=== PATIENT | female | born 1965 | race Caucasian/White ===

== ENCOUNTER 2024-08-10 15:08 | Emergency (ER) | payer OTHER ==
--- OUTSIDE RECORDS SUMMARY | 2024-08-10 15:12 | XMS REPORT | Continuity of Care Document ---
Author Name Unknown Address [address] [facility] [address] [place] [address] [facility] Address [address] [facility] [place] [address] Care Team Providers Care Marker Assembler Name Role Phone PCP, NOT FOUND Primary Care Physician Unavailab CY Morse Attending Clinician Unavailable [id number] Attending Clinician Unavailable NELLIE LORENZO Attending Clinician Unavailable Renetta Smith MD Attending Clinician RNEETTA SMITH Attending Clinician Unavail able FÉLIX FINLEY Attending Clinician Unavailable GABBIE HALL Attending Clinician Unavailable KELLY GRAVES Attending Clinician Unava ilable LAB90 Attending Clinician Unavailable MARIA LUZ FISHER Attending Clinician Unava ilable Doctor Unassigned, Manuel Garcia Ii Attending Clinician U ARY Hong Attending Clinician Unavailable Ary Salcido PA-C Attending Clinician [phone] Unknown, Attending Attending Clinician Unavailab JENNIFER Lieberman Attending Clinician Unavailable Jennifer Alvarado Attending Clinician [phone] LOUIE MALDONADO Attending Clinician Unavailable Gege RIVASP, Louie Zendejas Attending Clinician [phone] Janak PATEL, Carmelo Attending Clinician [phone] Tristan Velez PT, Shania Attending Clinician Un available Ozzy Cintron MD Attending Clinician [phone] Neri GONZALEZ, Anibal Gutierrez Attending Clinician Unavailmarisel Rush PT, Kelly Attending Clinician Unavailab OZZY Dumont Attending Clinician Unavaildeon Barrios PACShahriar S Attending Clinician [phone] Onel Lim MD Attending Clinician [phone] Provider, [facility] Attending Clinician Un available CARMELO BRICENO Attending Clinician Unavailable Rudy MISSILE INSPECTOR PREFLIGHT, Magda Attending Clinician [phone] Erik Marquez MD Attending Clinician + [phone] , [facility] Attending Clinician Unavail able LOUIE MALDONADO Admitting Clinician Unavailable Payers Payer Name Policy Type Policy Number Effective Date Expirati on Date Source [employer]ET[employer] HMO [id number] 2018 00:00:00 [employer] 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 [id number] 2024 00:00:00 [employer]ET[employer] 2 [id number] 2023 00:00:00 [employer] ACO COMM [id number] 2017 00:00:00 EAP RESOURCES FOR LVG_AETNA [id number] 2023 00:00:00 2024 00:00:00 Problems Condition Name Condition Details Condition Category Status Onset Date Resolution Date Last Treatment Date Treating Clinician Comments Source Primary hypertensi on Primary hypertensi on Disease Active 07-05 00:00: 00 Mary Carmen morton Depression with anxiety Depression with anxiety Disease Active 07-05 00:00: 00 Mary Carmen morton Fibromyalg ia Fibromyalg ia Disease Active 18 00:00: 00 Mary Carmen morton Allergies Allergies Disease Active 6- 00:00: 00 Ame Barker Anxiety Anxiety Disease Active 03-30 00:00: 00 Ame Barker 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 03-30 00:00: 00 Ame Barker Depression Depression Disease Active 03-30 00:00: 00 Ame Barker Headache Headache Disease Active 03-30 00:00: 00 Ame Barker HTN (hypertens ion) HTN (hypertens ion) Disease Active 03-30 00:00: 00 Ame Barker Memory loss Memory loss Disease Active 03-30 00:00: 00 Ame Barker Lumbar radiculopa thy Lumbar radiculopa thy Disease Active 03-30 00:00: 00 Ame Barker Obesity Obesity Disease Active 03-30 00:00: 00 Ame Barker Seasonal allergic rhinitis Seasonal allergic rhinitis Disease Active 03-30 00:00: 00 Ame Barker Obesity (BMI 30-39.9) Obesity (BMI 30-39.9) Disease Active 05-01 00:00: 00 [facility] DISORDERS OF SACRUM DISORDERS OF SACRUM Active 06/25/2015 [facility] Diagnosis Active 06-25 00:00: 00 2015-07-03 06:55:00 Ame Pappas Sleep apnea Sleep apnea Disease Active 01-16 00:00: 00 Ame Barker NSAID long-term use NSAID long-term use Disease Active 04-06 00:00: 00 Ame Barker Spondylosi s Spondylosi s Disease Active 03-16 00:00: 00 Ame Barker Acid reflux Acid reflux Disease Active 2009-10 0 00:00: 00 Ame Barker Inflammato ry spondylopa thy Inflammato ry spondylopa thy Disease Active 04-23 00:00: 00 Ame Barker Inflammato ry spondylopa thy Inflammato ry spondylopa thy Disease Active 04-23 00:00: 00 [facility] Backache Backache Disease Active 03-10 00:00: 00 Overview: Formattin g of this note might be different from the original. 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 [facility] Cervicalgi a Cervicalgi a Disease Active 03-10 00:00: 00 [facility] Other and unspecifie d nonspecifi c immunologi tosin findings Other and unspecifie d nonspecifi c immunologi tosin findings Disease Active 03-10 00:00: 00 [facility] DISORDERS OF SACRUM DISORDERS OF SACRUM Active [facility] Diagnosis Active 2015-07-03 06:55:00 Ame Pappas Arthritis (disorder) Arthritis (disorder) Active Problem 07/06/2015 [facility] Problem Active 2015-07-06 00:58:21 Ame Pappas Migraine Migraine Disease Resolve d 03-30 00:00: 00 2024-03-30 00:00:00 2024-03-30 15:13:50 Ame Pappas Epic Asthma Asthma Disease Resolve d 03-30 00:00: 00 2024-03-30 00:00:00 2024-03-30 15:13:50 Ame Pappas Epic Allergies, Adverse Reactions, Alerts Allergy Name Allergy Type Status Severity Reaction(s) Onset Date Inactive Date Treating Clinician Comments Source Aspirin Propensi ty to adverse reaction s Active 10-28 00:00: 00 Mary Carmen Seybold - Externa l Penicill ins Drug Intolera nce Active Itching 03-10 00:00: 00 Mary Carmen Seybold - Externa l Penicill ins Propensi ty to adverse reaction s Active Anaphylaxis 03-10 00:00: 00 Mary Carmen Seybold - Externa l Aspirin Propensi ty to adverse reaction s Active Itching, Swelling, Hives 03-10 00:00: 00 Ame Pappas Epic ASPIRIN DRUG INGREDI Active High Itching 03-10 00:00: 00 [facility] PENICILL INS Drug Class Active High Anaphylaxis 03-10 00:00: 00 [facility] ASPIRIN DRUG INGREDI Active Med ITCHING 03-10 00:00: 00 [facility] PENICILL INS Drug Class Active Anaphylaxis 03-10 00:00: 00 [facility] Penicill ins Propensi ty to adverse reaction s Active Anaphylaxis 03-10 00:00: 00 [facility] Aspirin Propensi ty to adverse reaction s Active Itching 03-10 00:00: 00 [facility] Penicill ins Propensi ty to adverse reaction s Active Anaphylaxis 03-10 00:00: 00 [facility] aspirin aspirin Active [facility] [place] penicill ins penicill ins Active [facility] ALLERGIE S NOT ON FILE SYSTEMIC Active [facility] ALLERGIE S NOT ON FILE SYSTEMIC Active [facility] Social History Social Habit Start Date Stop Date Quantity Comments Source Sexual orientation 2024-03-16 17:22:08 Heterosexual (finding) [employer] Gender identity 2024-01-08 19:30:15 Identifies as female gender (finding) [facility] ASSERTION Not Mary Carmen Mad[place] - External Tobacco use and exposure 2024-03-30 00:00:00 2024-03-30 00:00:00 Smokeless tobacco non-user [facility] Alcoholic beverage intake 2024-03-30 00:00:00 2024-03-30 00:00:00 .14 /d [facility] Social function 2024-03-30 00:00:00 2024-03-30 00:00:00 [facility] Alcohol intake 2023-05-28 00:00:00 2023-05-28 00:00:00 [facility] Sex 2023-05-17 13:44:26 2023-05-17 13:44:26 Female (finding) Mary Carmen Madera - External Exposure to SARS-CoV-2 (event) 2023-01-29 00:00:00 2023-02-08 21:07:00 Not sure [facility] Social History 2015-06-27 15:09:45 2015-06-27 15:09:45 [facility] Sex assigned at 1965 00:00:00 1965 00:00:00 Mary Carmen [place] - External Smoking Status Start Date Stop Date Source Never smoked tobacco Mary Carmen La External Medications Ordered Medication Name Filled Medication Name Start Date Stop Date Current Medication? Ordering Clinician Indication Dosage Frequency Signature (SIG) Comments Components Source busPIRone HCl 7.5 MG oral Tablet 2023-10 10:23: 40 Yes 7.5mg Q.5D Take 1 tablet (7.5 mg total) by mouth 2 times daily. Mary Carmen morton Pantoprazol e Sodium 40 MG oral Tablet Delayed Response 2023-10 10:23: 40 Yes 40mg QD Take 1 tablet (40 mg total) by mouth daily. Mary Carmen morton Valacyclovi r HCl 500 MG oral Tablet 2023-10 10:23: 40 Yes 500mg Q.5D Take 1 tablet (500 mg total) by mouth 2 times daily as needed. Mary Carmen morton busPIRone HCl 7.5 MG oral Tablet 07-05 13:25: 17 Yes 7.5mg Q.5D Take 1 tablet (7.5 mg total) by mouth 2 times daily. Mary Carmen morton Pantoprazol e Sodium 40 MG oral Tablet Delayed Response 07-05 13:25: 17 Yes 40mg QD Take 1 tablet (40 mg total) by mouth daily. Mary Carmen morton Valacyclovi r HCl 500 MG oral Tablet 07-05 13:25: 17 Yes 500mg Q.5D Take 1 tablet (500 mg total) by mouth 2 times daily as needed. Mary Carmen morton FLUTICASONE PROPIONATE, NASAL, 50 MCG/ACT nasal Suspension 07-05 12:44: 46 07-05 00:00 :00 No by nasal route Mary Carmen morton Sumatriptan Succinate 25 MG oral Tablet 07-05 12:44: 46 07-05 00:00 :00 No 50mg Take 2 tablets (50 mg total) by mouth once as needed for migraine (May repeat in 2 hours if unresolved . Do not exceed 200 mg in 24 hours.). Mary Carmen morton Losartan Potassium (COZAAR) 50 MG oral Tablet 07-05 00:00: 00 Yes [id number] 50mg QD Take 1 tablet (50 mg total) by mouth daily. Mary Carmen morton Pregabalin 50 MG oral Capsule 07-05 00:00: 00 Yes [id number] 50mg Q.5D Take 1 capsule (50 mg total) by mouth 2 times daily. Mary Carmen morton Losartan Potassium (COZAAR) 50 MG oral Tablet 06-28 00:00: 00 07-05 00:00 :00 No [id number] 50mg QD TAKE 1 TABLET BY MOUTH EVERY DAY Mary Carmen morton Cyclobenzap rine HCl 10 MG oral Tablet 06-22 00:00: 00 Yes [id number] 10mg Q.5D Take 1 tablet (10 mg total) by mouth 2 times daily as needed. Mary Carmen morton Naproxen 500 MG oral Tablet 06-22 00:00: 00 Yes [id number] 500mg Take 1 tablet (500 mg total) by mouth in the morning and 1 tablet (500 mg total) in the evening. Take with meals. Mary Carmen morton Bupropion HCL XL 150 MG OR TB24 06-21 00:00: 00 Yes [id number] Mary Carmen morton Pregabalin 75 MG oral Capsule 04-25 00:00: 00 Yes 75mg Q.5D Take 1 capsule (75 mg total) by mouth 2 times daily. Mary Carmen morton desloratadi ne (Clarinex) 5 MG tablet desloratadi ne (Clarinex) 5 MG tablet 03-30 15:35: 41 Yes 5mg QD Take 5 mg by mouth 1 time each day. Ame Barker montelukast (Singulair) 10 MG tablet montelukast (Singulair) 10 MG tablet 03-30 15:35: 41 Yes 10mg Take 10 mg by mouth at bedtime. Ame Barker busPIRone (Buspar) 7.5 MG tablet busPIRone (Buspar) 7.5 MG tablet 03-30 15:35: 41 Yes 7.5mg Q.5D Take 7.5 mg by mouth in the morning and 7.5 mg in the evening. Ame Barker pregabalin (Lyrica) 75 MG capsule pregabalin (Lyrica) 75 MG capsule 5-06 00:00: 00 Yes 1{capsu le} Q.5D Take 1 capsule by mouth in the morning and 1 capsule in the evening. Ame Barker pantoprazol e (ProtoNix) 40 MG EC tablet pantoprazol e (ProtoNix) 40 MG EC tablet 4 00:00: 00 Yes 40mg Take 40 mg by mouth in the morning. Take before meals. Ame Barker naproxen (Naprosyn) 500 MG tablet naproxen (Naprosyn) 500 MG tablet 02-09 00:00: 00 Yes 500mg Take 500 mg by mouth if needed. Ame Barker cyclobenzap rine (Flexeril) 10 MG tablet cyclobenzap rine (Flexeril) 10 MG tablet 03 00:00: 00 Yes 10mg Take 10 mg by mouth if needed. Ame Barker Levonorgest -Eth Estrad 0.15-0.03 &0.01 MG oral Tablet 10-28 14:21: 10-28 00:00 :00 No 1{tbl} Take 1 tablet by mouth daily. Mary Carmen morton Semaglutide -ALEX-Chris ght Management 0.25 MG/0.5ML Subcutaneou s Solution Auto-inject or 10-28 00:00: 00 07-05 00:00 :00 No [id number] .25mg Q1W Inject 0.25 mg into the skin once a week. Mary Carmen morton Sertraline HCl 50 MG oral Tablet 2022-10 00:00: 00 10-28 00:00 :00 No [id number] 50mg Take 1 tablet (50 mg total) by mouth daily. Mary Carmen morton OFLOXACIN, OPHTH, 0.3 % ophthalmic Solution 2022-10 00:00: 00 07-05 00:00 :00 No See Admin Instructio ns PLEASE SEE ATTACHED FOR DETAILED DIRECTIONS . Mary Carmen morton Montelukast (Singulair) 10 MG oral Tablet tablet 2022-10 16:40: 50 08-11 00:00 :00 No 10mg Take 1 tablet (10 mg total) by mouth nightly. Mary Carmen morton Pantoprazol e Sodium 40 MG oral Tablet Delayed Response 2022-10 16:25: 04 Yes 40mg Take 1 tablet (40 mg total) by mouth daily. Mary Carmen morton FLUTICASONE PROPIONATE, NASAL, 50 MCG/ACT nasal Suspension 2022-10 16:25: 04 Yes by nasal route Mary Carmen morton Valacyclovi r HCl 500 MG oral Tablet 2022-10 16:25: 04 Yes 500mg Q.5D Take 1 tablet (500 mg total) by mouth 2 times daily as needed. Mary Carmen morton Sumatriptan Succinate 25 MG oral Tablet 2022-10 16:25: 04 Yes 50mg Take 2 tablets (50 mg total) by mouth once as needed for migraine (May repeat in 2 hours if unresolved . Do not exceed 200 mg in 24 hours.). Mary Carmen morton busPIRone HCl 7.5 MG oral Tablet 2022-10 16:25: 04 Yes 7.5mg Take 1 tablet (7.5 mg total) by mouth 2 times daily. Mary Carmen morton Montelukast (Singulair) 10 MG oral Tablet tablet 2022-10 00:00: 00 Yes [id number] 10mg QD Take 1 tablet (10 mg total) by mouth nightly. Mary Carmen morton Sertraline HCl 50 MG oral Tablet 2022-10 00:00: 00 Yes [id number] 50mg Take 1 tablet (50 mg total) by mouth daily. Mary Carmen morton Sertraline HCl 25 MG oral Tablet 2022-10 0- 00:00: 00 08-11 00:00 :00 No [id number] 25mg TAKE 1 TABLET BY MOUTH EVERY DAY AT NIGHT Mary Carmen morton busPIRone HCl 7.5 MG oral Tablet 9-14 16:17: 26 Yes 7.5mg Take 1 tablet (7.5 mg total) by mouth 2 times daily. Mary Carmen morton Pantoprazol e Sodium 40 MG oral Tablet Delayed Response 07-01 16:17: 26 Yes 40mg Take 1 tablet (40 mg total) by mouth daily. Mary Carmen morton FLUTICASONE PROPIONATE, NASAL, 50 MCG/ACT nasal Suspension 07-01 16:17: 26 Yes by nasal route Mary Carmen morton Valacyclovi r HCl 500 MG oral Tablet 07-01 16:17: 26 Yes 500mg Q.5D Take 1 tablet (500 mg total) by mouth 2 times daily as needed. Mary Carmen morton Sumatriptan Succinate 25 MG oral Tablet 07-01 16:17: 26 Yes 50mg Take 2 tablets (50 mg total) by mouth once as needed for migraine (May repeat in 2 hours if unresolved . Do not exceed 200 mg in 24 hours.). Mary Carmen morton Sertraline HCl (Zoloft) 25 MG oral Tablet 07-01 00:00: 00 Yes [id number] 25mg Take 1 tablet (25 mg total) by mouth nightly. Mary Carmen morton Escitalopra m Oxalate 10 MG oral Tablet 06-25 00:00: 00 07-01 00:00 :00 No [id number] 10mg Take 1 tablet (10 mg total) by mouth daily. Mary Carmen morton Montelukast (SINGULAIR) 10 MG oral Tablet tablet 06-19 00:00: 00 07-01 00:00 :00 No Mary Carmen morton busPIRone HCl 7.5 MG oral Tablet 06-01 16:00: 46 Yes 7.5mg Take 1 tablet (7.5 mg total) by mouth 2 times daily Mary Carmen morton Pantoprazol e Sodium 40 MG oral Tablet Delayed Response 06-01 16:00: 46 Yes 40mg Take 1 tablet (40 mg total) by mouth daily Mary Carmen morton FLUTICASONE PROPIONATE, NASAL, 50 MCG/ACT nasal Suspension 06-01 16:00: 46 Yes by nasal route Mary Carmen morton Valacyclovi r HCl 500 MG oral Tablet 06-01 16:00: 46 Yes 500mg Q.5D Take 1 tablet (500 mg total) by mouth 2 times daily as needed Mary Carmen morton Sumatriptan Succinate 25 MG oral Tablet 06-01 16:00: 46 Yes 50mg Take 2 tablets (50 mg total) by mouth once as needed for migraine (May repeat in 2 hours if unresolved . Do not exceed 200 mg in 24 hours.) Mary Carmen morton Escitalopra m Oxalate 10 MG oral Tablet 06-01 00:00: 00 Yes [id number] 10mg Take 1 tablet (10 mg total) by mouth daily Mary Carmen morton Bupropion HCL XL 300 MG OR TB24 05-31 00:00: 00 Yes 300mg 1 tablet (300 mg total) every morning. Mary Carmen morton Desloratadi ne 5 MG oral Tablet 05-31 00:00: 00 Yes 5mg QD Take 1 tablet (5 mg total) by mouth daily. Mary Carmen morton dexamethaso ne sod phos PF injection 10 mg 05-28 18:30: 00 05-28 17:45 :00 No [id number] 10mg [facility] ibuprofen (IBU) tablet 800 mg 05-28 18:30: 00 05-28 17:46 :00 No [id number] 800mg [facility] Hyoscyamine Sulfate 0.125 mg-0.25 mg (0.375 mg) TbMP 05-28 12:51: 08 05-28 00:00 :00 No Take by mouth. [facility] Ibuprofen (MOTRIN) 800 MG oral Tablet 05-28 00:00: 00 10-28 00:00 :00 No 800mg Take 1 tablet (800 mg total) by mouth 3 times daily (with meals). Mary Carmen morton MULTI-VITAM IN ORAL 05-08 13:53: 43 Yes daily [facility] FLUTICASONE PROPIONATE (FLONASE ALLERGY RELIEF NASAL) 05-08 13:53: 43 Yes Use in each nostril. [facility] gabapentin ER 300 mg tablet, extended release 24 hr 05-08 13:53: 43 Yes Take by mouth daily. [facility] desloratadi ne 2.5 mg disintegrat ing tablet 05-08 13:53: 43 Yes 5mg Take 2 tablets by mouth in the morning. [facility] pantoprazol e 40 mg EC tablet 05-08 13:53: 43 Yes 40mg Take 1 tablet by mouth in the morning. [facility] Hyoscyamine Sulfate 0.125 mg-0.25 mg (0.375 mg) TbMP 05-08 13:53: 43 Yes Take by mouth. [facility] busPIRone 7.5 mg tablet 05-08 13:53: 43 Yes 7.5mg Take 1 tablet by mouth in the morning and 1 tablet in the evening. [facility] Losartan Potassium (COZAAR) 50 MG oral Tablet 04-29 00:00: 00 Yes 50mg Take 1 tablet (50 mg total) by mouth daily. Mary Carmen morton Gabapentin 300 MG oral Capsule 03-21 00:00: 00 07-05 00:00 :00 No 300mg QD Take 1 capsule (300 mg total) by mouth daily as needed. Mary Carmen morton ciprofloxac in HCl (CIPRO) tablet 500 mg 02-09 05:45: 00 02-09 04:57 :00 No 500mg 500 mg, Oral, ONCE, 1 dose, On Wed02/09/23 at 0045, [facility]
Re ason for Anti-Infec tive: Empiric Therapy for Suspected Infection< br>Empiric Therapy Site: Abdominal< br>Duratio n of therapy: 72 hours [facility] metroNIDAZO LE (FLAGYL) tablet 500 mg 02-09 05:00: 00 02-09 04:57 :00 No 500mg 500 mg, Oral, ONCE, 1 dose, On Wed02/09/23 at 0000, [facility]
Re ason for Anti-Infec tive: Empiric Therapy for Suspected Infection< br>Empiric Therapy Site: Skin / Soft tissue
Duration of therapy: 72 hours [facility] iopamidol (ISOVUE 370-500 mL) injection 87 mL 02-09 03:45: 00 02-09 03:45 :00 No [id number] 87mL 87 mL, Intravenou s, ONCE, 1 dose, On Wed02/08/23 at 2245, Routine [facility] morpHINE (4 mg/mL) injection 4 mg 02-09 03:15: 00 02-09 02:37 :00 No 4mg 4 mg, Slow IV Push, ONCE, 1 dose, On Wed02/08/23 at 2215, Routine [facility] NaCl 0.9% (NS) bolus infusion 1,000 mL 02-09 03:00: 00 02-09 04:43 :00 No 1000mL at 999 mL/hr, 1,000 mL, IV Infusion, ONCE, 1 dose, On Wed02/08/23 at 2200, FATMATA [facility] ondansetron (ZOFRAN (PF)) injection 4 mg 02-09 02:30: 00 02-09 02:36 :00 No 4mg 4 mg, Slow IV Push, ONCE, 1 dose, On Wed02/08/23 at 2130, [facility] desloratadi ne 2.5 mg disintegrat ing tablet 02-09 00:15: 30 Yes 5mg Take 2 tablets by mouth in the morning. [facility] pantoprazol e 40 mg EC tablet 02-09 00:15: 30 Yes 40mg Take 1 tablet by mouth in the morning. [facility] Hyoscyamine Sulfate 0.125 mg-0.25 mg (0.375 mg) TbMP 02-09 00:15: 30 Yes Take by mouth. [facility] busPIRone 7.5 mg tablet 02-09 00:15: 30 Yes 7.5mg Take 1 tablet by mouth in the morning and 1 tablet in the evening. [facility] ondansetron 4 mg disintegrat ing tablet 02-09 00:00: 00 Yes [id number] 4mg Take 1 tablet by mouth every 12 (twelve) hours as needed for Nausea and Vomiting (N/V). [facility] metroNIDAZO LE 500 mg tablet 02-09 00:00: 00 02-17 04:59 :00 No [id number] 500mg Take 1 tablet by mouth every 8 (eight) hours for 7 days. [facility] ciprofloxac in HCl 500 mg tablet 02-09 00:00: 00 02-17 04:59 :00 No [id number] 500mg Take 1 tablet by mouth in the morning and 1 tablet in the evening. Do all this for 7 days. [facility] acetaminoph en-codeine (TYLENOL-CO DEINE #3) 300-30 mg tablet 02-09 00:00: 00 02-17 04:59 :00 No [id number] 1{tbl} Take 1 tablet by mouth every 6 (six) hours as needed for Pain (scale 7-10) for up to 7 days. Indication s: acute pain [facility] ZYRTEC 10 MG ORAL CAP 02-08 21:17: 09 02-08 00:00 :00 No once daily [facility] MULTI-VITAM IN ORAL 02-08 21:16: 58 Yes daily [facility] FLUTICASONE PROPIONATE (FLONASE ALLERGY RELIEF NASAL) 02-08 21:16: 58 Yes Use in each nostril. [facility] gabapentin ER 300 mg tablet, extended release 24 hr 02-08 21:16: 58 Yes Take by mouth daily. [facility] diclofenac 75 mg EC tablet -02 00:00: 00 02-08 00:00 :00 No 75mg Take 1 tablet by mouth 2 (two) times daily with meals. [facility] HYDROcodone -acetaminop hen (NORCO) 10-325 mg tablet 1 tablet 03-09 07:15: 00 03-09 06:31 :00 No 1{tbl} 1 tablet, Oral, ONCE, 1 dose, 03/09/21 at 0215, [facility] alum-mag hydroxide-s imeth (MAALOX PLUS / MAG-AL PLUS) 200-200-20 mg/5 mL suspension 15 mL 03-09 06:30: 00 03-09 05:32 :00 No 15mL 15 mL, Oral, ONCE, 1 dose, 03/09/21 at 0130, [facility] ondansetron (ZOFRAN-ODT ) disintegrat ing tablet 4 mg 03-09 06:30: 00 03-09 05:31 :00 No 4mg 4 mg, Oral, ONCE, 1 dose, 03/09/21 at 0130, Routine [facility] predniSONE (DELTASONE) tablet 60 mg 03-09 06:30: 00 03-09 05:32 :00 No 60mg 60 mg, Oral, ONCE, 1 dose, 03/09/21 at 0130, [facility] HYDROcodone -acetaminop hen (NORCO) 10-325 mg tablet 03-09 00:00: 00 03-17 04:59 :00 No [id number] 1{tbl} Take 1 tablet by mouth every 6 (six) hours as needed for Pain (scale 4-6) for up to 7 days. Indication s: acute pain [facility] predniSONE 20 mg tablet 03-09 00:00: 00 03-15 04:59 :00 No [id number] 60mg Take 3 tablets by mouth every morning for 5 days. [facility] naproxen 500 mg tablet 2021-0 5-18 00:00: 00 04-04 04:59 :00 No [id number] 500mg Take 1 tablet by mouth 2 (two) times daily as needed for Pain (scale 4-6) for up to 30 days. [facility] ketorolac (TORADOL) injection 30 mg 03-02 23:00: 00 03-02 19:52 :54 No [id number] 30[facility]OL[facility] injection 30 mg 03-02 21:00: 00 03-02 19:54 :00 No [id number] 30mg [facility] gabapentin ER 300 mg tablet, extended release 24 hr 03-02 19:34: 30 Yes Take by mouth daily. [facility] ZYRTEC 10 MG ORAL CAP 03-02 19:32: 18 Yes once daily [facility] MULTI-VITAM IN ORAL 03-02 19:32: 18 Yes daily [facility] FLUTICASONE PROPIONATE (FLONASE ALLERGY RELIEF NASAL) 03-02 19:32: 18 Yes Use in each nostril. [facility] gabapentin ER 300 mg tablet, extended release 24 hr 03-02 14:34: 30 Yes Take by mouth daily. [facility] ZYRTEC 10 MG ORAL CAP 03-02 14:32: 18 Yes once daily [facility] MULTI-VITAM IN ORAL 03-02 14:32: 18 Yes daily [facility] FLUTICASONE PROPIONATE (FLONASE ALLERGY RELIEF NASAL) 03-02 14:32: 18 Yes Use in each nostril. [facility] methylPREDN ISolone (MEDROL, PETRA,) 4 mg tablets 03-02 00:00: 00 02-08 00:00 :00 No [id number] Take by mouth SEE-INSTRU CTIONS. follow package directions [facility] montelukast 10 mg tablet 12 00:00: 00 Yes TAKE 1 TABLET BY MOUTH EVERY DAY AT BEDTIME FOR ALLERGIES [facility] losartan (Cozaar) 50 MG tablet losartan (Cozaar) 50 MG tablet 01-25 00:00: 00 Yes 50mg QD Take 50 mg by mouth 1 time each day. Ame Barker rizatriptan 10 mg disintegrat ing tablet 20 00:00: 00 02-08 00:00 :00 No [facility] meclizine 25 mg tablet 11-28 00:00: 00 02-08 00:00 :00 No 1 TABLET THREE TIMES A DAY NEEDED FOR DIZZINESS ORALLY 10 DAYS [facility] buPROPion XL 150 mg 24 hr tablet 11-26 00:00: 00 Yes 150mg Take 150 mg by mouth daily. [facility] buPROPion XL 150 mg 24 hr tablet 11-26 00:00: 00 Yes 300mg Take 2 tablets by mouth in the morning. [facility] DULoxetine 60 mg capsule 11-26 00:00: 00 02-08 00:00 :00 No TAKE 1 CAPSULE BY MOUTH EVERY DAY [facility] ZYRTEC 10 MG ORAL CAP 05-01 15:31: 43 Yes once daily [facility] MULTI-VITAM IN ORAL 05-01 15:31: 43 Yes daily [facility] FLUTICASONE PROPIONATE (FLONASE ALLERGY RELIEF NASAL) 05-01 15:31: 43 Yes Use in each nostril. [facility] Promethazin e 07-03 13:56: 00 No Notes: Do not give IV push. (Same as: Phenergan) Ame Pappas Ondansetron 07-03 13:56: 00 No Notes: (Same as: Zofran) MEDICATION WASTE Product Size: 4 mg Product Wasted: ___ mg Ame Pappas Sodium Chloride 0.0769 MEQ/ML Injectable Solution 07-03 13:56: 00 No 1,000 mL, Rate: 125 ml/hr, Infuse over: 8 hr, Route: IV, Dosing Weight 84.545 kg, Total Volume: 1,000, Start date: 07/03/15 8:56:00, Duration: 30 day, Stop date: 08/02/15 8:55:00 Maribelracquel selene Pappas Sodium Chloride 0.0769 MEQ/ML Injectable Solution 07-03 13:07: 00 No 1,000 mL, Rate: 125 ml/hr, Infuse over: 8 hr, Route: IV, Dosing Weight 84.545 kg, Total Volume: 1,000, Start date: 07/03/15 8:07:00, Duration: 30 day, Stop date: 08/02/15 8:06:00 Ame Pappas Ondansetron 07-03 12:55: 00 No Notes: (Same as: Paulina) MEDICATION WASTE Product Size: 4 mg Product Wasted: ___ mg Aem Pappas Calcium Chloride 0.0014 MEQ/ML / Potassium Chloride 0.004 MEQ/ML / Sodium Chloride 0.103 MEQ/ML / Sodium Lactate 0.028 MEQ/ML Injectable Solution 07-03 12:55: 00 No 1,000 mL, Rate: 75 ml/hr, Infuse over: 13.3 hr, Route: IV, Dosing Weight 84.545 kg, Total Volume: 1,000, Start date: 07/03/15 7:55:00, Duration: 30 day, Stop date: 08/02/15 7:54:00 Ame Pappas methocarbam ol 750 mg oral tablet 06-27 15:26: 00 Yes 750 mg = 1 tab, PO, Q8H, PRN Spasms, # 60 tab, 0 Refill(s) Ame Pappas Acetaminoph en 325 MG / Hydrocodone Bitartrate 7.5 MG Oral Tablet [[place] 7.5/325] 06-27 15:26: 00 Yes 1 tab, PO, Q6H, PRN Pain, # 60 tab, 0 Refill(s) Ame Pappas azelastine 06-27 15:26: 00 Yes 1 spray, NASAL, Daily, 0 Refill(s) Ame Pappas valACYclovi r 500 mg oral tablet 06-27 15:25: 00 Yes 500 mg = 1 tab, PO, Daily, 0 Refill(s) Ame Pappas multivitami n 06-27 15:25: 00 Yes 1 tab, PO, Daily, 0 Refill(s) Memracquel Pappas DULoxetine 60 mg oral delayed release capsule 06-27 15:25: 00 Yes 60 mg = 1 cap, PO, Daily, # 30 cap, 0 Refill(s) Memracquel Pappas rizatriptan 10 mg oral tablet 06-27 15:24: 00 Yes 10 mg = 1 tab, PO, Daily, PRN for migraine headache, # 12 tab, 0 Refill(s) Ame Pappas Loestrin 06-27 15:24: 00 Yes 1 tab, PO, Daily, 0 Refill(s) Memracquel Pappas cetirizine hydrochlori de 10 MG Oral Tablet [Zyrtec] 06-27 15:24: 00 Yes 10 mg = 1 tab, PO, Daily, # 30 tab, 0 Refill(s) Ame Pappas celecoxib 200 MG Oral Capsule [Celebrex] 06-27 15:23: 00 Yes 200 mg = 1 cap, PO, Daily, # 30 cap, 0 Refill(s) Ame Pappas lansoprazol e 30 MG Enteric Coated Capsule [Prevacid] 06-27 15:23: 00 Yes 30 mg = 1 cap, PO, Daily, # 30 cap, 0 Refill(s) Ame Pappas Advair Diskus 500 mcg-50 mcg inhalation powder 06-27 15:23: 00 Yes 1 puff, INHALATION , Daily, 0 Refill(s) Ame Pappas valACYclovi r (Valtrex) 500 MG tablet valACYclovi r (Valtrex) 500 MG tablet 06-27 00:00: 00 Yes 500mg 500 mg = 1 tab, PO, Daily, 0 Refill(s) Ame Pappas Epic lansoprazol e (Prevacid) [address] capsule lansoprazol e (Prevacid) [address] capsule 06-27 00:00: 00 03-30 00:00 :00 No 30mg 30 mg = 1 cap, PO, Daily, # 30 cap, 0 Refill(s) Ame morton [place] [facility] celecoxib (CeleBREX) 200 MG capsule celecoxib (CeleBREX) 200 MG capsule 06-27 00:00: 00 03-30 00:00 :00 No 200mg 200 mg = 1 cap, PO, Daily, # 30 cap, 0 [facility]) [facility]AC[facility]cl[facility] (VALTREX) 500 mg tablet 2011-10 00:00: 00 Yes 1{capsu le} Take 1 Cap by mouth daily. [facility] valACYclovi r (VALTREX) 500 mg tablet 2011-10 00:00: 00 Yes 500mg Take 1 tablet by mouth in the morning. [facility] Immunizations Ordered Immunization Name Filled Immunization Name Date Status Comments Source Tetanus Toxoid, Unspecified Tetanus Toxoid, Unspecified 2023-01-15 00:00:00 Completed [facility] Pfizer SARS-CoV-2 Bivalent 30 mcg/0.3 mL Pfizer SARS-CoV-2 Bivalent 30 mcg/0.3 mL 2019-12-30 00:00:00 Completed [facility] Pfizer Purple Cap SARS-CoV-2 Pfizer Purple Cap SARS-CoV-2 2019-10-31 00:00:00 Completed [facility] tetanus toxoid, unspecified formulation Unknown Completed [facility] [place] - External COVID-19 Bivalent vaccine PFIZER 12+ Unknown Completed Mary Carmen murry - External Covid-19 Vaccine (FedBid), Mrna-lnp, Hardik Protein, Pf, 30mcg/0.3ml,IM Unknown Completed Mary Carmen devries - External tetanus toxoid, unspecified formulation Unknown Completed Mary Carmen [place] External COVID-19 Bivalent vaccine PFIZER 12+ Unknown Completed Mary Carmen murry - External Covid-19 Vaccine (FedBid), Mrna-lnp, Hardik Protein, Pf, 30mcg/0.3ml,IM Unknown Completed [facility] Carmen devries - External Vital Signs Vital Name Observation Time Observation Value Comments Kendall casas Systolic blood pressure 2024-08-07 15:19:00 118 mm[Hg] Mary Carmen garcia - External Diastolic blood pressure 2024-08-07 15:19:00 76 mm[Hg] Mary Carmen Whittenybo ld - External Heart rate 2024-08-07 15:19:00 87 /min Aldairse y Seybold - External Body temperature 2024-08-07 15:19:00 36.61 Ling Mary Carmen Seybold - External Respiratory rate 2024-08-07 15:19:00 18 /min Mary Carmen Seybold - External Body height 2024-08-07 15:19:00 157.5 cm Marielle ey Seybold - External Body weight 2024-08-07 15:19:00 96.163 kg Marielle ey Seybold - External BMI 2024-08-07 15:19:00 38.78 kg/m2 Marielle ey Seybold - External Oxygen saturation in Arterial blood by Pulse oximetry 2024-08-07 15:19:00 98 /min Mary Carmen Seybo ld - External Systolic blood pressure 2024-07-05 18:20:00 124 mm[Hg] Mary Carmen Seybo ld - External Diastolic blood pressure 2024-07-05 18:20:00 76 mm[Hg] Mary Carmen Seybo ld - External Heart rate 2024-07-05 18:20:00 104 /min Aldairse y Seybold - External Body temperature 2024-07-05 18:20:00 36.56 Ling Mary Carmen Seybold - External Respiratory rate 2024-07-05 18:20:00 14 /min Mary Carmen Seybold - External Body height 2024-07-05 18:20:00 157.5 cm Marielle ey Seybold - External Body weight 2024-07-05 18:20:00 97.977 kg Marielle ey Seybold - External BMI 2024-07-05 18:20:00 39.51 kg/m2 Marielle ey Seybold - External Systolic blood pressure 2024-03-30 15:14:00 104 mm[Hg] [facility] Diastolic blood pressure 2024-03-30 15:14:00 76 mm[Hg] [facility] Heart rate 2024-03-30 15:14:00 92 /min Maribelor ial [facility] Body temperature 2024-03-30 15:14:00 36.5 Ling [facility] Respiratory rate 2024-03-30 15:14:00 16 /min [facility] Body height 2024-03-30 15:14:00 152.4 cm [facility] 2024-03-30 15:14:00 96.435 kg [facility] BMI 2024-03-30 15:14:00 41.52 kg/m2 [facility] Oxygen saturation in Arterial blood by Pulse oximetry 2024-03-30 15:14:00 96 /min [facility] Systolic blood pressure 2024-03-30 15:14:00 104 mm[Hg] [facility] Diastolic blood pressure 2024-03-30 15:14:00 76 mm[Hg] [facility] Heart rate 2024-03-30 15:14:00 92 /min Symone wilson [facility] Body temperature 2024-03-30 15:14:00 36.5 Ling [facility] Respiratory rate 2024-03-30 15:14:00 16 /min [facility] Body height 2024-03-30 15:14:00 152.4 cm Carlos beltran [facility] Body weight 2024-03-30 15:14:00 96.435 kg Carlos beltran [facility] BMI 2024-03-30 15:14:00 41.52 kg/m2 Carloshyun Leungann [facility] Oxygen saturation in Arterial blood by Pulse oximetry 2024-03-30 15:14:00 96 /min [facility] Systolic blood pressure 2023-08-11 21:22:00 124 mm[Hg] Mary Carmen Seybo ld - External Diastolic blood pressure 2023-08-11 21:22:00 74 mm[Hg] Mary Carmen Seybo ld - External Heart rate 2023-08-11 21:22:00 96 /min Kelse y Seybold - External Body temperature 2023-08-11 21:22:00 37.06 Ling Mary Carmen Seybold - External Respiratory rate 2023-08-11 21:22:00 14 /min Mary Carmen Seybold - External Body height 2023-08-11 21:22:00 157.5 cm Marielle ey Seybold - External Body weight 2023-08-11 21:22:00 93.441 kg Marielle ey Seybold - External BMI 2023-08-11 21:22:00 37.68 kg/m2 Marielle ey Seybold - External Systolic blood pressure 2023-07-01 21:13:00 122 mm[Hg] Mary Carmen Seybo ld - External Diastolic blood pressure 2023-07-01 21:13:00 80 mm[Hg] Mary Carmen Seybo ld - External Heart rate 2023-07-01 21:13:00 92 /min Aldairse y Seybold - External Body temperature 2023-07-01 21:13:00 36.78 Ling Mary Carmen Seybold - External Respiratory rate 2023-07-01 21:13:00 14 /min Mary Carmen Whittenybold - External Body height 2023-07-01 21:13:00 157.5 cm Marielle bai Seybold - External Body weight 2023-07-01 21:13:00 89.812 kg Marielle bai Seybold - External BMI 2023-07-01 21:13:00 36.21 kg/m2 Marielle bai Seybold - External Systolic blood pressure 2023-06-01 20:50:00 141 mm[Hg] Mary Carmen Seybo ld - External Diastolic blood pressure 2023-06-01 20:50:00 79 mm[Hg] Mary Carmen Whittenybo ld - External Heart rate 2023-06-01 20:50:00 95 /min Aldairse y Seybold - External Body temperature 2023-06-01 20:50:00 36.89 Ling Mary Carmen Whittenybold - External Body weight 2023-06-01 20:50:00 91.627 kg Marielle bai Seybold - External Oxygen saturation in Arterial blood by Pulse oximetry 2023-06-01 20:50:00 96 /min Mary Carmen Rauscho ld - External Systolic blood pressure 2023-05-28 17:21:00 136 mm[Hg] [facility] Diastolic blood pressure 2023-05-28 17:21:00 84 mm[Hg] [facility] Heart rate 2023-05-28 17:21:00 91 /min Eugene [facility] Body temperature 2023-05-28 17:21:00 37.28 Ling [facility] Respiratory rate 2023-05-28 17:21:00 24 /min [facility] Body weight 2023-05-28 17:21:00 90.175 kg [facility] BMI 2023-05-28 17:21:00 36.36 kg/m2 [facility] Oxygen saturation in Arterial blood by Pulse oximetry 2023-05-28 17:21:00 97 /min [facility] Systolic blood pressure 2023-05-08 18:49:00 128 mm[Hg] [facility] Diastolic blood pressure 2023-05-08 18:49:00 87 mm[Hg] [facility] Heart rate 2023-05-08 18:49:00 84 /min Un[facility] Body temperature 2023-05-08 18:49:00 37.06 Ling [facility] Body weight 2023-05-08 18:49:00 87.091 kg [facility] BMI 2023-05-08 18:49:00 35.12 kg/m2 [facility] Oxygen saturation in Arterial blood by Pulse oximetry 2023-05-08 18:49:00 98 /min [facility] Systolic blood pressure 2023-02-09 04:40:00 129 mm[Hg] [facility] Diastolic blood pressure 2023-02-09 04:40:00 80 mm[Hg] [facility] Heart rate 2023-02-09 04:40:00 82 /min Unive [facility] Respiratory rate 2023-02-09 04:40:00 15 /min [facility] Oxygen saturation in Arterial blood by Pulse oximetry 2023-02-09 04:40:00 97 /min [facility] Body temperature 2023-02-09 02:10:00 37.78 Ling [facility] Body height 2023-02-09 02:10:00 157.5 cm [facility] Body weight 2023-02-09 02:10:00 84.369 kg [facility] BMI 2023-02-09 02:10:00 34.02 kg/m2 [facility] Systolic blood pressure 2021-03-13 14:23:00 155 mm[Hg] [facility] Diastolic blood pressure 2021-03-13 14:23:00 92 mm[Hg] [facility] Heart rate 2021-03-13 14:23:00 82 /min Unive [facility] Body height 2021-03-13 14:16:00 157.5 cm [facility] Body weight 2021-03-13 14:16:00 94.802 kg [facility] BMI 2021-03-13 14:16:00 38.23 kg/m2 [facility] Systolic blood pressure 2021-03-09 05:14:00 158 mm[Hg] [facility] Diastolic blood pressure 2021-03-09 05:14:00 96 mm[Hg] [facility] Heart rate 2021-03-09 05:14:00 81 /min [facility] Body temperature 2021-03-09 05:14:00 36.28 Ling [facility] Respiratory rate 2021-03-09 05:14:00 18 /min [facility] Body weight 2021-03-09 05:14:00 94.802 kg [facility] BMI 2021-03-09 05:14:00 38.23 kg/m2 [facility] Oxygen saturation in Arterial blood by Pulse oximetry 2021-03-09 05:14:00 100 /min [facility] Systolic blood pressure 2021-03-04 16:33:00 159 mm[Hg] [facility] Diastolic blood pressure 2021-03-04 16:33:00 100 mm[Hg] [facility] Heart rate 2021-03-04 16:30:00 90 /min [facility] Body temperature 2021-03-04 16:30:00 36.56 Ling [facility] Respiratory rate 2021-03-04 16:30:00 18 /min [facility] Body height 2021-03-04 16:30:00 157.5 cm [facility] Body weight 2021-03-04 16:30:00 94.802 kg [facility] BMI 2021-03-04 16:30:00 38.23 kg/m2 [facility] Oxygen saturation in Arterial blood by Pulse oximetry 2021-03-04 16:30:00 98 /min [facility] Systolic blood pressure 2021-03-02 19:33:00 130 mm[Hg] [facility] Diastolic blood pressure 2021-03-02 19:33:00 81 mm[Hg] [facility] Heart rate 2021-03-02 19:33:00 91 /min Un[facility] Body temperature 2021-03-02 19:33:00 36.94 Ling [facility] Respiratory rate 2021-03-02 19:33:00 18 /min [facility] Body height 2021-03-02 19:33:00 157.5 cm [facility] Body weight 2021-03-02 19:33:00 94.802 kg [facility] BMI 2021-03-02 19:33:00 38.23 kg/m2 [facility] Oxygen saturation in Arterial blood by Pulse oximetry 2021-03-02 19:33:00 98 /min [facility] Systolic blood pressure 2019-06-07 19:54:00 115 mm[Hg] [facility] Diastolic blood pressure 2019-06-07 19:54:00 83 mm[Hg] [facility] Heart rate 2019-06-07 19:54:00 104 /min Un[facility] Respiratory rate 2019-06-07 19:54:00 19 /min [facility] Body height 2019-06-07 19:54:00 157.5 cm [facility] Body weight 2019-06-07 19:54:00 96.48 kg [facility] BMI 2019-06-07 19:54:00 38.90 kg/m2 [facility] Oxygen saturation in Arterial blood by Pulse oximetry 2019-06-07 19:54:00 98 /min [facility] Heart Rate 2015-07-03 14:30:00 Symone Pappas Respitory Rate 2015-07-03 14:30:00 Samantha Pappas Systolic (mm Hg) 2015-07-03 14:30:00 Shelby Pappas Diastolic (mm Hg) 2015-07-03 14:30:00 [facility] Diastolic (mm Hg) 2015-07-03 14:15:00 [facility] [place] Heart Rate 2015-07-03 14:15:00 [facility] Respitory Rate 2015-07-03 14:15:00 [facility] Systolic (mm Hg) 2015-07-03 14:15:00 [facility] [place] Systolic (mm Hg) 2015-07-03 14:00:00 [facility] Diastolic (mm Hg) 2015-07-03 14:00:00 [facility] Heart Rate 2015-07-03 14:00:00 [facility] [place] Respitory Rate 2015-07-03 14:00:00 [facility] Temperature Oral (F) 2015-07-03 12:39:00 98.4 F [facility] Weight 2015-07-03 12:35:00 [facility] [place] BMI Calculated 2015-07-03 12:35:00 [facility] [place] Height 2015-06-27 15:20:00 157.48 cm [facility] [place] Procedures Procedure Date / Time Performed Performing Clinician Source XR FOOT 3+ VW RIGHT 2023-05-28 18:11:12 Ck Salcido [facility] POCT URINALYSIS 2023-05-08 19:17:00 [facility] SARS-COV-2 ANTIGEN (BINAX NOW) 2023-05-08 18:55:00 Saira Parks [facility] LIPASE 2023-02-09 02:28:00 Louie Maldonado [facility] TROPONIN I 2023-02-09 02:28:00 Louie Maldonado [facility] COMP. METABOLIC PANEL (50221) 2023-02-09 02:28:00 Louie Maldonado [facility] CBC WITH DIFF 2023-02-09 02:28:00 Louie Maldonado [facility] URINALYSIS 2023-02-09 02:28:00 Louie Maldonado [facility] COVID-19 (ID NOW RAPID TESTING) 2023-02-09 02:28:00 Louie Maldonado [facility] LACTIC ACID WHOLE BLOOD 2023-02-09 02:27:00 Louie Maldonado [facility] CONSENT/REFUSAL FOR DIAGNOSIS AND TREATMENT 2023-02-09 01:58:33 Doctor Unassigned, Manuel Garcia Ii [facility] EXTERNAL PROVIDER RECORDS 2021-04-28 05:01:00 Doctor Unassigned, Manuel Garcia Ii [facility] CT LUMBAR SPINE WO CONTRAST 2021-03-09 06:10:31 Onel Lim [facility] XR LUMBAR SPINE 2 VW 2021-03-09 05:44:11 Hansa Lim [facility] CONSENT/REFUSAL FOR DIAGNOSIS AND TREATMENT 2021-03-09 05:05:49 Doctor Unassigned, Manuel Garcia Ii [facility] NOTICE OF PRIVACY PRACTICES 2021-03-09 05:05:33 Doctor Unassigned, Manuel Garcia Ii [facility] XR HIPS 2 VW RIGHT 2021-03-04 17:15:19 Carmelo Briceno [facility] ASSIGNMENT OF BENEFITS 2021-03-02 19:23:28 Docto r Unassigned, Manuel Garcia Ii [facility] DME/SUPPLY JUSTIFICATION 2019-06-07 05:01:00 Doc tor Unassigned, Manuel Garcia Ii [facility] SLEEP STUDY DATA REPORT 2019-05-26 05:01:00 Doct or Unassigned, Manuel Garcia Ii [facility] Spinal fusion 2014-01-13 05:00:00 Ame Pappas Encounters Start Date/Time End Date/Time Encounter Type Admission Type Attending [facility] Care Facility Care Department Encounter ID Source 2021-08-17 20:42:46 Emergency [facility] [id number] [facility] 2024-08-08 16:30:00 2024-08-08 16:30:00 Outpatient CY SINGLETON [id number] [facility] 2024-08-07 11:20:00 2024-08-07 11:20:00 Outpatient LABStefanie JACOB [id number] [facility] [place] 2024-08-07 10:30:00 2024-08-07 10:30:00 Outpatient NELLIE LORENZO [id number] [facility] 2024-07-06 13:30:00 2024-07-06 13:30:00 Outpatient CY SINGLETONMONA JACOB [id number] [facility] 2024-07-05 13:30:00 2024-07-05 13:30:00 Outpatient CY SINGLETON MARY CARMEN [id number] [facility] 2024-06-23 00:00:00 2024-06-23 00:00:00 Outpatient MANI CY JACOB [id number] [facility] 2024-05-29 00:00:00 2024-05-29 00:00:00 Outpatient ARNALDO SINGLETONSalud JACOB [id number] [facility] 2024-04-11 00:00:00 2024-04-11 00:00:00 Outpatient MANI CY JACOB [id number] [facility] 2024-03-30 14:45:00 2024-03-30 15:41:06 Office Visit Renetta Smith Romario Elisabet 1.2.840.114 350.1.13.70 8.2.7.2.686 [id number] [facility] 2024-03-30 14:34:23 2024-03-30 15:41:06 Outpatient Elective [facility] [id number] 2023-12-08 00:00:00 2023-12-08 00:00:00 Outpatient MANI CY JACOB [id number] [facility] 2023-11-17 17:49:44 2023-11-17 17:49:44 Outpatient FÉLIX FINLEY [facility] [id number] [facility] 2023-11-15 00:00:00 2023-11-15 00:00:00 Outpatient CY SINGLETON [id number] [facility] 2023-10-28 13:45:00 2023-10-28 13:45:00 Outpatient GABBIE HALL [id number] [facility] 2023-10-27 18:12:27 2023-10-27 18:12:27 Outpatient FÉLIX FINLEY [facility] [id number] [facility] 2023-10-23 13:00:00 2023-10-23 13:00:00 Outpatient KELLY GRAVES [facility]ARY CARMEN JACOB [id number] [facility] 2023-10-19 08:45:00 2023-10-19 08:45:00 Outpatient LATHA [facility]ACOB [id number] [facility] 00:00:00 2023-10-19 00:00:00 Outpatient HUNDL, CY JACOB [id number] [facility] 2023-10-19 00:00:00 2023-10-19 00:00:00 Outpatient HUNDL, CY JACOB [id number] [facility] 2023-09-08 00:00:00 2023-09-08 00:00:00 Outpatient HUNDL, CY JACOB [id number] [facility] 2023-08-11 16:30:00 2023-08-11 16:30:00 Outpatient HUNDL, CY JACOB [id number] [facility] 2023-07-29 13:30:00 2023-07-29 13:30:00 Outpatient HUNDL, CY JACOB [id number] [facility] 2023-07-23 00:00:00 2023-07-23 00:00:00 Outpatient HUNDL, CY JACOB [id number] [facility] 2023-07-01 16:30:00 2023-07-01 16:30:00 Outpatient HUNDL, CY JACOB [id number] [facility] 2023-07-01 00:00:00 2023-07-01 00:00:00 Outpatient HUNDL, CY JACOB [id number] [facility] 2023-06-24 00:00:00 2023-06-24 00:00:00 Outpatient MARIA LUZ FISHER [id number] [facility]01 16:00:00 2023-06-01 16:00:00 Outpatient MARIA LUZ FISHER [id number] [facility] [place] 2023-05-31 00:00:00 2023-05-31 00:00:00 Patient Secure Msg Doctor Unassigned, Manuel Garcia Ii [facility] 1..840.114 350.1.13.10 4.2.7.2.686 [id number] [facility] 2023-05-28 12:34:44 2023-05-28 23:59:00 Outpatient R ARY SALCIDO [facility] [id number] [facility] 2023-05-28 12:34:44 2023-05-28 23:59:00 Hospital Encounter Ary Salcido [facility] 1..840.114 350.1.13.10 4.2.7.2.686 [id number] [facility] 2023-05-28 12:10:00 2023-05-28 14:20:18 Urgent Care Ary Salcido Unknown, Attending [facility] 1.840.114 350.1.13.10 4.2.7.2.686 [id number] [facility] 2023-05-08 13:40:00 2023-05-08 14:21:09 Outpatient R JENNIFER GUTIÉRREZ [facility] [id number] [facility] 2023-05-08 13:40:00 2023-05-08 14:00:00 Urgent Care Jennifer Gutiérrez Unknown, Attending [facility] 1.840.114 350.1.13.10 4.2.7.2.686 [id number] [facility] 2023-02-08 21:17:00 2023-02-09 00:15:00 Emergency X LOUIE MALDONADO [facility] [id number] [facility] 2023-02-08 21:17:00 2023-02-09 00:15:00 Emergency Louie Maldonado [facility] 1.2.840.114 350.1.13.10 4.2.7.2.686 [id number] [facility] 2023-02-08 00:00:00 2023-02-08 00:00:00 Orders Only Doctor Unassigned, Manuel Garcia Ii [facility] 1.2.840.114 350.1.13.10 4.2.7.2.686 [id number] [facility] 2021-04-28 00:00:00 2021-04-28 00:00:00 Orders Only Doctor Unassigned, Manuel Garcia Ii [facility] 1.2.840.114 350.1.13.10 4.2.7.2.686 [id number] [facility] 2021-04-05 00:00:00 2021-04-05 00:00:00 Carmelo Luis [facility] Office Building [facility] 1.2.840.114 350.1.13.10 4.2.7.2.686 [id number] [facility] 2021-04-04 14:55:29 2021-04-04 15:35:29 Ancillary Visit Shania Macias [facility] Building 1.2.840.114 350.1.13.10 4.2.7.2.686 [id number] [facility] 2021-04-02 15:55:50 2021-04-02 16:35:50 Ancillary Visit Anibal He [facility] Building 1.2.840.114 350.1.13.10 4.2.7.2.686 [id number] [facility] 2021-03-31 16:19:29 2021-03-31 16:59:29 Ancillary Visit Kelly Rush [facility] Building 1.2.840.114 350.1.13.10 4.2.7.2.686 [id number] [facility] 2021-03-31 00:00:00 2021-03-31 00:00:00 [facility] 1.2840.114 350.1.13.10 4.2.7.2.686 [id number] [facility] 2021-03-28 08:36:37 2021-03-28 09:17:30 [facility]illary [facility] 1.2.840.114 350.1.13.10 4.2.7.2.686 [id number] [facility] 2021-03-25 15:50:57 2021-03-25 16:53:12 Ancillary Visit Kelly Rush [facility] Building 1.2.840.114 350.1.13.10 4.2.7.2.686 [id number] [facility] 2021-03-25 16:00:00 2021-03-25 16:00:00 Outpatient R OZZY CINTRON [facility] [id number] [facility] 2021-03-23 00:00:00 2021-03-23 00:00:00 [facility] 1.2.840.114 350.1.13.10 4.2.7.2.686 [id number] [facility] 2021-03-19 00:00:00 2021-03-19 00:00:00 Telephone Shahriar Barrios [facility] [facility] 1.2.840.114 350.1.13.10 4.2.7.2.686 [id number] [facility] 2021-03-13 09:16:10 2021-03-13 09:35:25 Office Visit Ozzy Cintron [facility] 1.2.840.114 350.1.13.10 4.2.7.2.686 [id number] [facility] 2021-03-13 09:30:00 2021-03-13 09:30:00 Outpatient R OZZY CINTRON [facility] [id number] [facility] 2021-03-09 00:16:00 2021-03-09 01:49:00 Emergency Onel Lim [facility] 1.2.840.114 350.1.13.10 4.2.7.2.686 [id number] [facility] 2021-03-04 11:48:40 2021-03-04 23:59:00 Hospital Encounter Winifred Bricenothia [facility] 1.2.840.114 350.1.13.10 4.2.7.2.686 [id number] [facility] 2021-03-04 11:25:15 2021-03-04 11:45:15 Urgent Care Provider, [facility] 1.2.840.114 350.1.13.10 4.2.7.2.686 [id number] [facility] 2021-03-04 11:40:00 2021-03-04 11:40:00 [facility] [id number] [facility] 2021-03-02 14:24:33 2021-03-02 14:44:33 Urgent Care Provider, [facility] Magda rGant [facility] stacy Office Building One 1.2.840.114 350.1.13.10 4.2.7.2.686 [id number] [facility] 2021-03-02 14:40:00 2021-03-02 14:40:00 Outpatient R [facility] [id number] [facility] 2021-03-02 00:00:00 2021-03-02 00:00:00 Orders Only Doctor Unassigned, Manuel Garcia Ii [facility] 1.2.840.114 350.1.13.10 4.2.7.2.686 [id number] [facility] 2020-08-28 00:00:00 2020-08-28 00:00:[address] [facility] 1.2.840.114 350.1.13.10 4.2.7.2.686 [id number] [facility] 2019-06-07 14:48:10 2019-06-07 15:06:35 Office Visit Erik Marquez [facility] 1.2.840.114 350.1.13.10 4.2.7.2.686 [id number] [facility] 2019-06-07 00:00:00 2019-06-07 00:00:00 Orders Only Doctor Unassigned, Manuel Garcia Ii [facility] 1.2.840.114 350.1.13.10 4.2.7.2.686 [id number] [facility] 2019-05-26 12:50:41 2019-05-26 15:20:41 Cable Repairer Visit 1, [facility] Sleep Lab Bed Erik Marquez [facility] 1.2.840.114 350.1.13.10 4.2.7.2.686 [id number] [facility] 2019-05-26 00:00:00 2019-05-26 00:00:00 Orders Only Doctor Unassigned, Manuel Garcia Ii [facility] 1.2.840.114 350.1.13.10 4.2.7.2.686 [id number] [facility] 2015-07-03 11:47:00 2015-07-04 04:59:00 OBS Day Surgery nullFlavo r [facility] [id number] Aem morton [place] Results Test Description Test Time Test Comments Results Result Co mments Source [facility]2 [facility] (BINAX NOW)2023-05-08 19:13:00* Test Item Value Reference Range Interpretation Comme nts POCT SARS-COV-2 ANTIGEN (alen t code = 99414-7) Not Detected Not Detected On board controls acceptable with C Line (test code = 3574) Yes Lab Interpretation (test cod e = 42819-7) Normal [facility] [id number] 03:19:26* Test Item Value Reference Range Interpretation Comme nts TROPONIN I (test code = 3669823712) 0.004 ng/mL <=0.034 MEEK (test code = MEEK) Reference (Normal) Range (defined by the 99th percentile reference limit): <= 0.034 ng/mL Note: Cardiac troponin begins to rise 3-4 hours after the onset of ischemia. Repeat in 4-6 hours if the sample was drawn within 3-4 hours of the onset of the symptom and found normal. Diagnosis of myocardial injury is made with acute changes in cTn concentrations with at least one serial sample above the 99th percentile upper reference limit (URL), taken together with the patient's clinical presentation. Biotin has been reported to cause a negative bias, interpret results relative to patient's use of biotin. Lab Interpretation (test code = 78463-5) Normal [facility] MET[facility]OLIC PANEL (24183)2023-02-09 03:08:44* Test Item Value Reference Range Interpretation Comme nts NA (test code = 0500736913) 137 mmol/L 135-145 K (test code = 2179694870) 4.3 mmol/L 3.5-5.0 CL (test code = 0809314001) 104 mmol/L 98-108 CO2 TOTAL (test code = 8363508207) 27 mmol/L 23-31 AGAP (test code = 6169928241) 6 2-16 BUN (test code = 9868256869) 10 mg/dL 7-23 GLUCOSE (test code = 7967367366) 109 mg/dL 70-110 CREATININE (test code = 6076449541) 0.88 mg/dL 0.50-1.04 TOTAL BILI (test code = 8613133462) 0.7 mg/dL 0.1-1.1 CALCIUM (test code = 9883002863) 9.1 mg/dL 8.6-10.6 T PROTEIN (test code = 8438436074) 7.2 g/dL 6.3-8.2 ALBUMIN (test code = 5323631055) 4.3 g/dL 3.5-5.0 ALK PHOS (test code = 9116449871) 89 U/L 34-122 ALTv (test code = 1742-6) 27 U/L 5-35 AST(SGOT) (test code = 4201047476) 33 U/L 13-40 eGFR (test code = 5001177633) 66.5 mL/min/1.73m2 MEEK (test code = MEEK) Association of Glomerular Filtration Rate (GFR) and Staging of Kidney Disease* + + +- +| GFR (mL/min/1.73 m2) ?| With Kidney Damage ?| ?Without Kidney Damage+ ------+ ----+ ------+| ?>90 ?| ?Stage one ?| ? Normal ?+ -+ + -+| ?60-89 ?| ?Stage two ?| ? Decreased GFR ? + + +- +| ?30-59 ?| ?Stage three ?| ? Stage three ? + + +- +| ?15-29 ?| ?Stage four ? | ? Stage four ?+ -+ + -+| ?<15 (or dialysis) ? ?| ?Stage five ? | ? Stage five ?+ -+ + -+ *Each stage assumes the associated GFR level has been in effect for at least three months. ?Stages 1 to 5, with or without kidney disease, indicate chronic kidney disease. Notes: Determination of stages one and two (with eGFR >59mL/min/1.73 m2) requires estimation of kidney damage for at least three months as defined by structural or functional abnormalities of the kidney, manifested by either:Pathological abnormalities or Markers of kidney damage (including abnormalities in the composition of the blood or urine or abnormalities in imaging tests). [facility] CenterLIPASE2023-[facility] 03:08:03* Test Item Value Reference Range Interpretation Comme nts LIPASE (test code = 7603210201) 119 U/L 0-220 Lab Interpretation (test cod e = 65495-7) Normal [facility] CenterCB WITH [id number] 02:56:45* Test Item Value Reference Range Interpretation Comme nts WBC (test code = 6690-2) 6.48 See_Comment [[employer]] The system which generated this result transmitted reference range: 4.30 - 11.10 10*3/?L. The reference range was not used to interpret this result as normal/abnormal. RBC (test code = 789-8) 4.45 See_Comment [[employer]] The system which generated this result transmitted reference range: 3.93 - 5.25 10*6/?L. The reference range was not used to interpret this result as normal/abnormal. HGB (test code = 718-7) 13.5 g/dL 11.6-15.0 HCT (test code = 4544-3) 39.6 % 35.7-45.2 MCV (test code = 787-2) 89.0 fL 80.6-95.5 MCH (test code = 785-6) 30.3 pg 25.9-32.8 MCHC (test code = 786-4) 34.1 g/dL 31.6-35.1 RDW-SD (test code = 17366-4) 43.1 fL 39.0-49.9 RDW-CV (test code = 788-0) 13.2 % 12.0-15.5 PLT (test code = 777-3) 313 See_Comment [[employer]] The system which generated this result transmitted reference range: 166 - 358 10*3/?L. The reference range was not used to interpret this result as normal/abnormal. MPV (test code = 59121-2) 9.4 fL 9.5-12.9 L NRBC/100 WBC (test code = 7125690285) 0.0 See_Comment [Automated me ssage] The system which generated this result transmitted reference range: 0.0 - 10.0 /100 WBCs. The reference range was not used to interpret this result as normal/abnormal. NRBC x10^3 (test code = 7107172952) See_Comment [Automated messa ge] The system which generated this result transmitted reference range: 10*3/?L. The reference range was not used to interpret this result as normal/abnormal. GRAN MAT (NEUT) % (test code = 770-8) 70.4 % IMM GRAN % (test code = 4298003117) 0.20 % LYMPH % (test code = 736-9) 19.9 % MONO % (test code = 5905-5) 7.7 % EOS % (test code = 713-8) 1.5 % BASO % (test code = 706-2) 0.3 % GRAN MAT x10^3(ANC) (test code = 7257248924) 4.56 10*3/uL 1.88-7.09 IMM GRAN x10^3 (test code = 3505096289) 0.00-0.06 LYMPH x10^3 (test code = 731-0) 1.29 10*3/uL 1.32-3.29 L MONO x10^3 (test code = 742-7) 0.50 10*3/uL 0.33-0.92 EOS x10^3 (test code = 711-2) 0.10 10*3/uL 0.03-0.39 BASO x10^3 (test code = 704-7) 0.01-0.07 Lab Interpretation (test code = 70032-9) Abnormal [facility] Center[facility] HIPS 2 VW [id number] 17:31:24HISTORY: Recurrent right hip pain. FINDINGS: AP and lateral views of right hip showed no acute fracture ordislocation. Mild degenerative changes are seen in the inferomedial portionof the hip joint with slightly narrowed joint space, small osteophyte alongthe inferior articular edge of the acetabulum and head of the femur. Nosign of AVN in the femoral head or aggressive bone lesions seen. Incidental note of partially visualized metallic hardware at L5-S1. CONCLUSIONS: No acute fracture or dislocation in right hip. [facility], Radiant Results Inft User - 03/04/2021 12:32 PM CDTHISTORY: Recurrent right hip pain.FINDINGS: AP and lateral views of right hip showed no acute fracture ordislocation. Mild degenerative changes are seen in the inferomedial portionof the hip joint with slightly narrowed joint space, small osteophyte alongthe inferior articular edge of the acetabulum and head of the femur. Nosign of AVN in the femoral head or aggressive bone lesions seen.Incidental note of partially visualized metallic hardware at L5-S1.CONCLUSIONS: No acute fracture or dislocation in right hip. [facility] CenterURINE [id number] 13:03:00* Test Item Value Reference Range Interpretation Comme nts U Preg (test code = U Preg) Negative (07/03/15 8:03 AM) Shelby Pappas Notes Date/Time Note Provider Source 2024-08-07 10:23:45 Chief Complaint Patient presents with Physical Fasting OTHER C/O trigger finger on right hand x 3-4 months T [facility] 2024-07-05 13:25:18 Chief Complaint Patient presents with REFILLS-NURSE/MD Refill Losartan Virginia Crisostomo MA II T [facility] Referral ID Status Reason Start Date Expiration Date Visits Re quested Visits Authorized [id number] Closed 03/23/2024 09/19/2024 1 1 [facility] [id number] [facility]:42[facility]27 [facility] 17:[facility]27* Renetta Smith MD - 03/30/2024 2:45 PM CDT HPI Patient returns for reevaluation. Brain MRI unremarkable for her age. Plain film lumbar spine demonstrates grade 1 listhesis L4/5 with prior fusion L5/S1 and spondylosis as well. Prior labs were unremarkable. Memory problem is static. Recommended core strengthening for the back problem. Allergies as of 03/30/2024 - Reviewed 03/30/2024 Allergen Reaction Noted Aspirin Itching, Swelling, and Hives 03/10/2010 Penicillins Anaphylaxis, Itching, and Hives 03/10/2010 has a current medication list which includes the following prescription(s): bupropion xl, buspirone, cyclobenzaprine, desloratadine, losartan, montelukast, naproxen, pantoprazole, pregabalin, and valacyclovir. Answers submitted by the patient for this visit: Review of Systems (Submitted on 03/28/2024) Back pain: Yes Joint pain: Yes Muscle aches: Yes Neck pain: Yes Neck stiffness: Yes Side pain: Yes Anxiety or nervousness: Yes Confusion: Yes Decreased concentration: Yes Unhappiness or dissatisfaction: Yes Vitals:03/30/24 1514 BP: 104/76 Pulse: 92 Resp: 16 Temp: 36.5 ?C (97.7 ?F) SpO2: 96% Neurological Exam Awake and alert. Cranial nerves are unremarkable. Strength full. Sensation intact. Reflexes symmetric. Cerebellar exam demonstrates no ataxia. Gait normal. No results found for this or any previous visit. No MRI head results found for the past 12 months Assessment & PlanMemory loss Lumbar radiculopathy Nonintractable episodic headache, unspecified headache type Problems are stable, workup is unrevealing. [facility] continue to follow. [facility]2024-[facility] 17:42:27Upcoming Encounters Health Maintenance Due Date Last Done Comments CT Colonography 1965 Colonoscopy 1965 Colorectal Cancer Screening 1965 FIT-DNA 1966 FIT 1966 FOBT 1965 Lipid Panel 1966 Sigmoidoscopy 1966 DTaP/Tdap/Td Vaccines (1 - Tdap) 1985 Hepatitis B Vaccines (1 of 3 - 19+ 3-dose series) 1985 Pap Smear 12/25/1987 Cervical Cancer Screening 1996 HPV/Cotest 1996 Mammogram 2006 Zoster Vaccines (1 of 2) 2016 Influenza Vaccine (Season Ended) 2024 Respiratory Syncytial Virus (RSV) or >=60 (1 - 1-dose 60+ series) 2026 HIB Vaccines Aged Out No longer eligi ble based on patient's age to complete this topic HPV Vaccines Aged Out No longer eligi ble based on patient's age to complete this topic Hepatitis A Vaccines Aged Out No long er eligible based on patient's age to complete this topic IPV Vaccines Aged Out No longer eligi ble based on patient's age to complete this topic Meningococcal Vaccine Aged Out No gurdeep mulugeta eligible based on patient's age to complete this topic Pneumococcal Vaccine: Pediat rics (0 to 5 Years) and At-Risk Patients (6 to 64 Years) Aged Out No longer eligible b ased on patient's age to complete this topic Rotavirus Vaccines Aged Out No longer eligible based on patient's age to complete this topic [facility] RegionalUsqgflb8994-00-64 17:42:27 Diagnosis Memory loss - Primary Lumbar radiculopathy Thoracic or lumbosacral neuritis or radiculitis, unspecified Nonintractable episodic head ache, unspecified headache type [facility] RegionalNkmcgon1577-57-92 17:42:27 [facility] RegionalNyxuqzm4522-90-42 15:36:28 Images from the original note were not included. 08[address] Exercise Program for Spondylolysis and Spondylolisthesis Your healthcare provider may recommend exercises to help treat your spondylolysis or spondylolisthesis. Talk to your healthcare provider or physical therapist about which exercises are best for you and your rehabilitation goals. Start each exercise slowly. A little discomfort is normal but stop any exercise that causes pain. Double Knee to Chest 1. Lie on your back with your knees bent. 2. Hug both knees to your chest. Keep your lower back on the floor. 3. Hold for 15 to 30 seconds, then relax. 4. Repeat 3 times. Child's Pose 1. Kneel on the floor and sit back on your heels. 2. Lean forward and stretch your arms out in front of you with your palms down. Try to keep your buttocks against your heels as much as possible. 3. Relax your neck and let your forehead gently rest against the floor. Reach as far in front of you as possible. 4. Hold for 15 to 30 seconds, then relax. 5. Repeat 3 times. Seated Abdominal Bracing 1. Sit upright in a chair with your feet flat on the floor. 2. Tighten your belly muscles by pulling your belly button towards your spine. Hold for 5 seconds. Continue to breathe normally as you hold. Then relax. 3. Repeat 10 times. Tip: ? Try counting out loud to help avoid holding your breath. Curl Up 1. Lie on your back with your knees bent and feet flat on the floor. Don?t press your neck or lower back to the floor. Cross your arms loosely over your chest. You may place a pillow under your head for comfort if desired. 2. Tighten your belly muscles and raise your shoulder blades off the floor. Keep your head in line with your shoulders. Do not tuck your chin to your chest. 3. Hold for 2 seconds, then lower yourself back down. 4. Repeat 10 times. Tip: ? Breathe normally during the exercise; do not hold your breath. Last Reviewed Date: 2023 ? 4236-9472 [employer]. All rights reserved. This information is not intended as a substitute for professional medical care. Always follow your healthcare professional's instructions. [facility] RegionalLfgqlkq6139-05-03 13:25:36 Chief Complaint Patient presents with OTHER Requesting medication Zoila Shafer CMA II [facility] Mary CarmenKettering Memorial HospitalEthxab3873-71-39 16:17:28 Chief Complaint Patient presents with Follow-up Follow up on anti depressant. She would like to discuss an alternative to Wellbutrin. Virginia Crisostomo MA II Virginia Crisostomo MA, IIFormerly [facility]id[facility]plin HospitalmonaKettering Memorial HospitalFvidcj5854-53-29 16:00:48 Patient has been going to [facility], but is reporting depression and would like to reevaluate medications, since making appt she has had urgent care visit for bone spur on great toe of right foot. PhQ9 score of 24, ZOEY 7 score of 13. BP 141/79, HR 95, medications reconciled. [facility] StillwaterghazalLakeWood Health CenterNatubh1856-74-69 08:35:00* DATE: Jul 03, 2015 08:56:00 AM INDICATION: BILATERAL SI JOINT INJ COMPARISON: None available. FINDINGS: Series of images demonstrates needle placement into both sacroiliac joints. Contrast is seen partially outlining capsule both joints. Both capsules show distention irregularity and diverticula formation without free extravasation of contrast material. Fluoroscopy time is one minute and 12 seconds and dose is 11.99 milligrays. IMPRESSION: 1. Bilateral SI joint arthrograms are described above. [facility]"
[2024-08-10 17:05] LABS: Specific Gravity 1.012 (1.005-1.030); Sqamous Epithelial <5 /HPF (None Seen); Urine Bacteria <20 /HPF (<20); Urine Bilirubin NEGATIVE (Negative); Urine Blood Negative (Negative); Urine Clarity Turbid (Clear); Urine Color Yellow (Yellow); Urine Culture Reflex Order NOT NEEDED; Urine Glucose NEGATIVE (Negative); Urine Ketones NEGATIVE (Negative); Urine Microscopic Reflex YN ORDER UMIC; Urine Mucus Slight /HPF (None Seen); Urine Nitrite NEGATIVE (Negative); Urine Protein NEGATIVE (Negative); Urine RBC <5 /HPF (None Seen); Urine Urobilinogen Normal (Normal); Urine WBC <5 /HPF (<5)
[2024-08-10 17:58] LABS: Absolute Eosinophils 0.1 K/uL (0-0.5); Absolute Lymphocytes (CBC) 0.8 K/uL (0.7-4.9); Absolute Monocytes 0.5 K/uL (0.1-1.3); Absolute Neutrophil 4.3 K/uL (1.8-8.0); Basophils % 0.3 % (0-1.3); Eosinophils % 1.1 % (0-4.4); Hematocrit 35.7 % (36.0-45.0); Lymphocytes % 14.3 % (15.3-44.8); MCH 28.6 pg (27.0-35.0); MCHC 33.7 g/dL (32.0-36.0); MCV 84.8 fL (80-100); MPV 8.5 fL (7.6-11.3); Monocytes % 8.7 % (3.3-12.3); Neutrophils % 75.6 % (41.7-73.7); Platelets 110 thou/uL (152-406); Red Cell Distribution Width 15.2 % (12.1-15.2)
[2024-08-10 18:16] LABS: ALT/SGPT 37 U/L (13-56); AST/SGOT 59 U/L (15-37); Albumin 3.3 g/dL (3.4-5.0); Albumin/Globulin Ratio 0.7 (1.1-1.8); Alkaline Phosphatase 99 U/L (45-117); Anion Gap 8.3 mEq/L (5.0-15.0); BUN Blood Urea Nitrogen 5 mg/dL (7-18); Bicarbonate 26 mEq/L (21-32); Bilirubin Total 0.5 mg/dL (0.2-1.0); Globulin 4.7 g/dL (2.3-3.5); Glomerular Filtration Rate 97 ml/min (=/>90); Glucose Level 116 mg/dL (74-106); Potassium 3.3 mEq/L (3.5-5.1); Sodium Level 140 mEq/L (136-145)
--- NOTE | 2024-08-10 18:33 | EDPHYS ---
Physician Documentation [facility] Name: Sarah Hall Age: 58 yrs Sex: Female : 1965 Arrival Date: 08/10/2024 Time: 15:08 Bed 18 Private MD: ED Physician Juan Saavedra HPI: 08/10 15:35 This 58 yrs old Female presents to ER via Ambulatory with complaints of Mental health sd2 crisis. 15:35 58 yo F presents with CC of mental health problem. She reports she has been unable to sd2 stop crying for the last 4 hours and that her depression has been worsening for the past 6 months when she initially lost her job and she has had difficulty focusing and functioning normally at her new job. When asked about SI, she reports "I don't care if I live or ." Denies plan, HI or hallucinations. Compliant with medications.. Historical: - Home Meds: 15:29 Wellbutrin Oral 300 mg [Active]; BuSpar Oral [Active]; db - PMHx: 15:29 DEPRESSION; ANXIETY; db - Immunization history:: Adult Immunizations unknown. - Infectious Disease History:: Denies. - Social history:: Smoking status: Patient denies any tobacco usage or history of. ROS: 15:35 Constitutional: Negative for fever, chills, and weight loss, Eyes: Negative for injury, sd2 pain, redness, and discharge, Cardiovascular: Negative for chest pain, palpitations, and edema, Respiratory: Negative for shortness of breath, cough, wheezing. Abdomen/GI: Negative for abdominal pain, nausea, vomiting, diarrhea. MS/Extremity: Negative for injury and deformity, Skin: Negative for injury, rash, and discoloration, 15:35 Psych: Positive for anxiety, depression, Negative for auditory hallucinations, visual hallucinations, homicidal ideation, suicide gesture, Exam: 15:35 Constitutional: This is a well developed, well nourished patient who is awake, alert, sd2 and in no acute distress. Head/Face: Normocephalic, atraumatic. Eyes: EOMI, normal conjunctiva bilaterally Chest/axilla: Normal chest wall appearance and motion. Nontender with no deformity. Cardiovascular: Regular rate and rhythm with a normal S1 and S2. No gallops, murmurs, or rubs. 2+ distal pulses. Respiratory: Lungs have equal breath sounds bilaterally, clear to auscultation and percussion. No rales, rhonchi or wheezes noted. No increased work of breathing, no retractions or nasal flaring. Abdomen/GI: Soft, non-tender, with normal bowel sounds. No guarding or rebound. No evidence of tenderness throughout. Skin: Warm, dry with normal turgor. Normal color with no rashes, no lesions, and no evidence of cellulitis. MS/ Extremity: Pulses equal, no cyanosis. Neurovascular intact. Full, normal range of motion. Psych: Awake, alert, with orientation to person, place and time. Anxious appearing and tearful. 16:38 ECG was reviewed by the Attending Physician. NSR, rate 87, no STEMI criteria sd2 Vital Signs: 15:28 BP 164 / 90; Pulse 98; Resp 18; Temp 98; Pulse Ox 98% ; Weight 96.16 kg; Height 5 ft. 2 db in. ; 16:36 BP 134 / 85; Pulse 84; Resp 18 S; Pulse Ox 98% on R/A; kc6 17:00 BP 116 / 75; Pulse 84; Resp 17 S; Pulse Ox 99% on R/A; kc6 17:30 BP 113 / 76; Pulse 85; Resp 18 S; Pulse Ox 99% on R/A; kc6 18:00 BP 123 / 80; Pulse 87; Resp 15 S; Pulse Ox 98% on R/A; kc6 18:30 BP 134 / 83; Pulse 91; Resp 18 S; Pulse Ox 99% on R/A; kc6 19:00 BP 130 / 64; Pulse 83; Resp 18; Pulse Ox 96% on R/A; al5 20:00 BP 109 / 51; Pulse 89; Resp 18; Pulse Ox 98% on R/A; al5 21:00 BP 119 / 84; Pulse 88; Resp 17; Pulse Ox 97% on R/A; al5 15:28 Body Mass Index 38.77 (96.16 kg, 157.48 cm) db MDM: 15:34 Medical Screening Exam initiated sd2 15:35 Differential Diagnosis depression, anxiety, SI, substance abuse among others. Data sd2 reviewed: vital signs, nurses notes, lab test result(s). 20:47 ED course: PT DENIES SUICIDAL IDEATION. isabella 08/10 15:34 Order name: CBC with Diff; Complete Time: 18:01 sd2 08/10 15:34 Order name: CMP; Complete Time: 20:18 sd2 08/10 15:34 Order name: Salicylate; Complete Time: 20:18 sd2 08/10 15:34 Order name: Acetaminophen; Complete Time: 20:18 sd2 08/10 15:34 Order name: UDS sd2 08/10 15:34 Order name: Urinalysis w/ reflexes; Complete Time: 18:01 sd2 08/10 15:34 Order name: Ethanol; Complete Time: 20:18 sd2 08/10 15:34 Order name: EKG - Nurse/Tech; Complete Time: 16:38 sd2 08/10 16:55 Order name: Labs - recollect needed: 2 greens, purple,red; Complete Time: 17:53 bc6 08/10 20:19 Order name: PO challenge: JUICE; Complete Time: 21:45 isabella Administered Medications: No medications were administered Disposition Summary: 08/10/24 20:46 Discharge Ordered Notes: Location: Home isabella Problem: new(08/10/24 20:46) isabella Symptoms: have improved(08/10/24 20:46) isabella Condition: Stable(08/10/24 20:46) isabella Diagnosis - Adjustment disorder with depressed mood isabella - Adjustment disorder with mixed anxiety and depressed mood isabella - Hypokalemia(08/10/24 20:46) isabella Followup: isabella - With: Private Physician - When: 2 - 3 days - Reason: Recheck today's complaints, Continuance of care, Re-evaluation by your physician Followup: isabella - With: Bahman Amato MD - When: 2 - 3 days - Reason: Recheck today's complaints, Re-evaluation by your physician Discharge Instructions: - Discharge Summary Sheet isabella - Adjustment Disorder, Adult isabella - Potassium Content of Foods isabella - Hypokalemia isabella - Managing Depression, Adult isabella Forms: - Medication Reconciliation Form isabella - Antibiotic Education isabella - Prescription Opioid Use isabella - Patient Portal Instructions isabella - Leadership Thank You Letter isabella Signatures: Dispatcher [employer] Juan Arroyo MD MD cha Dunlop, Stephanie, MD MD sd2 Nubia Billingsley RN RN Margaret Fernández 6 Corrections: (The following items were deleted from the chart) 15:35 15:35 CBC+H.LAB.BRZ ordered. EDMS EDMS 15:35 15:35 COMPREHENSIVE METABOLIC PANEL+C.LAB.BRZ ordered. EDMS EDMS 15:35 15:35 SALICYLATE+C.LAB.BRZ ordered. EDMS EDMS 15:35 15:35 ACETAMINOPHEN+C.LAB.BRZ ordered. EDMS EDMS 15:35 15:35 URINE DRUG SCREEN+UC.LAB.BRZ ordered. EDMS EDMS 15:35 15:35 Urinalysis+U.LAB.BRZ ordered. EDMS EDMS 15:35 15:35 ETHANOL+C.LAB.BRZ ordered. EDMS EDMS 20:34 18:32 TO PSYCH isabella isabella 20:45 18:32 Psych Facility isabella isabella 20:45 18:32 Higher level of care isabella isabella 20:45 18:32 Stable isabella isabella 20:45 18:32 new isabella isabella 20:45 18:32 are unchanged isabella isabella 20:45 18:32 Major depressive disorder, recurrent, moderate isabella isabella 20:45 18:32 Suicidal ideations isabella isabella 20:45 20:34 TO PSYCH isabella isabella 20:45 20:34 Hypokalemia isabella isabella
--- NOTE | 2024-08-10 18:33 | ER ---
Nurse's Notes [facility] Name: Sarah Hall Age: 58 yrs Sex: Female : 1965 Arrival Date: 08/10/2024 Time: 15:08 Bed 18 Private MD: Diagnosis: Adjustment disorder with depressed mood;Adjustment disorder with mixed anxiety and depressed mood;Hypokalemia Presentation: 08/10 15:28 Chief complaint: Patient states: HAVING A MENTAL CRISIS TODAY. CAME IN TEARFUL. STATES db LOST JOB AND IS TRYING TO WORK. STATES HAS DEPRESSION. DENIES WANTING TO KILL SELF AND DENIES WANTING TO HURT SELF. STATES WANTS HELP. DOESN'T CARE IF DOES LIVE BUT DOES NOT WANT TO HURT SELF. Coronavirus screen: Client denies travel out of the [place] in the last 14 days. At this time, the client does not indicate any symptoms associated with coronavirus-19. Ebola Screen: Patient negative for fever greater than or equal to 101.5 degrees Fahrenheit, and additional compatible Ebola Virus Disease symptoms Patient denies exposure to infectious person. Patient denies travel to an Ebola-affected area in the 21 days before illness onset. No symptoms or risks identified at this time. 15:28 Method Of Arrival: Ambulatory db 15:30 Initial Sepsis Screen: Does the patient meet any 2 criteria? No. Patient's initial db sepsis screen is negative. Does the patient have a suspected source of infection? No. Patient's initial sepsis screen is negative. Risk Assessment: Do you want to hurt yourself or someone else? Patient reports no desire to harm self or others. Onset of symptoms was August 10, 2024. 15:30 Acuity: DENISE 2 db Triage Assessment: 15:31 General: Appears in no apparent distress. uncomfortable, Behavior is cooperative, db crying. Pain: Denies pain. Neuro: Level of Consciousness is awake, alert, obeys commands, Oriented to person, place, time, situation. Respiratory: Airway is patent Respiratory effort is even, unlabored, Respiratory pattern is regular, symmetrical. Historical: - Home Meds: 15:29 Wellbutrin Oral 300 mg [Active]; BuSpar Oral [Active]; db - PMHx: 15:29 DEPRESSION; ANXIETY; db - Immunization history:: Adult Immunizations unknown. - Infectious Disease History:: Denies. - Social history:: Smoking status: Patient denies any tobacco usage or history of. Screenin:30 [facility] ED Fall Risk Assessment (Adult) History of falling in the last 3 months, kc6 including since admission No falls in past 3 months (0 pts) Confusion or Disorientation No (0 pts) Intoxicated or Sedated No (0 pts) Impaired Gait No (0 pts) Mobility Assist Device Used No (0 pt) Altered Elimination No (0 pt) Score/Fall Risk Level 0 - 2 = Low Risk Oriented to surroundings. Abuse screen: Denies threats or abuse. Denies injuries from another. Nutritional screening: No deficits noted. Tuberculosis screening: No symptoms or risk factors identified. Assessment: 15:30 General: Appears in no apparent distress. comfortable, well groomed, well developed, kc6 Behavior is calm, cooperative, appropriate for age. Pain: Denies pain. Neuro: Level of Consciousness is awake, alert, obeys commands, Oriented to person, place, time, situation, Appropriate for age. Cardiovascular: Capillary refill < 3 seconds. Respiratory: Airway is patent Trachea midline Respiratory effort is even, unlabored, Respiratory pattern is regular, symmetrical. GI: No signs and/or symptoms were reported involving the gastrointestinal system. : No signs and/or symptoms were reported regarding the genitourinary system. Urine is clear. EENT: No signs and/or symptoms were reported regarding the EENT system. Derm: No signs and/or symptoms reported regarding the dermatologic system. Skin is intact, is healthy with good turgor, Skin is pink, warm \\T\\ dry. Musculoskeletal: No signs and/or symptoms reported regarding the musculoskeletal system. Circulation, motion, and sensation intact. Capillary refill < 3 seconds, Range of motion: intact in all extremities. 15:30 Reassessment: pt states, "I'm just really depressed and I want help. I lost my job a kc6 while back and recently got a new one and I completely blew it. I don't really have any family or close friends, I feel like I'm not a contributing member of society." pt denies SI or HI at this time. 16:30 Reassessment: Patient appears in no apparent distress at this time. No changes from kc6 previously documented assessment. Patient and/or family updated on plan of care and expected duration. Pain level reassessed. Patient is alert, oriented x 3, equal unlabored respirations, skin warm/dry/pink. 17:30 Reassessment: Patient appears in no apparent distress at this time. No changes from kc6 previously documented assessment. Patient and/or family updated on plan of care and expected duration. Pain level reassessed. Patient is alert, oriented x 3, equal unlabored respirations, skin warm/dry/pink. 18:30 Reassessment: Patient appears in no apparent distress at this time. No changes from kc6 previously documented assessment. Patient and/or family updated on plan of care and expected duration. Pain level reassessed. Patient is alert, oriented x 3, equal unlabored respirations, skin warm/dry/pink. 19:05 General: Appears in no apparent distress. comfortable, Behavior is calm, cooperative. al5 General: patient denies any thoughts of harming herself or others, patient in no apparent distress at this time.. Pain: Denies pain. Neuro: Level of Consciousness is awake, alert, obeys commands, Oriented to person, place, time, situation. Cardiovascular: Capillary refill < 3 seconds Patient's skin is warm and dry. Respiratory: Airway is patent Respiratory effort is even, unlabored, Respiratory pattern is regular, symmetrical. GI: No signs and/or symptoms were reported involving the gastrointestinal system. : No signs and/or symptoms were reported regarding the genitourinary system. EENT: No signs and/or symptoms were reported regarding the EENT system. Derm: Skin is intact, is healthy with good turgor, Skin is pink, warm \\T\\ dry. normal. Musculoskeletal: No signs and/or symptoms reported regarding the musculoskeletal system. 19:17 Reassessment: gave report to nurse at [facility], has acceptance. al5 20:08 Reassessment: Patient appears in no apparent distress at this time. No changes from al5 previously documented assessment. Patient and/or family updated on plan of care and expected duration. Pain level reassessed. Patient is alert, oriented x 3, equal unlabored respirations, skin warm/dry/pink. 20:50 Reassessment: Patient appears in no apparent distress at this time. No changes from al5 previously documented assessment. Patient and/or family updated on plan of care and expected duration. Pain level reassessed. Patient is alert, oriented x 3, equal unlabored respirations, skin warm/dry/pink. patient notified of being transferred, patient states she wants to go home. MD notified and aware. patient plan for discharge. patient denies any SI/HI thoughts. Psych: 15:30 [place] Suicide Severity Screening: In the past month, have you wished you were kc6 or wished you could go to sleep and not wake up? Patient responds "No." "In the past month, have you actually had any thoughts of killing yourself?" Patient responds "no." "In your lifetime, have you ever done anything, started to do anything, or prepared to do anything to end your life?" Patient responds "no.". Subjective: Patient's mood is sad, Delusions are denied, Hallucinations are denied Having thoughts of N/A. Objective: Patient is cooperative, Speech is normal, Affect is appropriate. Interventions: Searched person for dangerous items. Urine collected and sent for urine drug test. Safety Checks: Personal items have not been removed. Door is open. No visitors are present at this time. Pt denies substance abuse. Commitment: Patient will be a voluntary commitment. Vital Signs: 15:28 BP 164 / 90; Pulse 98; Resp 18; Temp 98; Pulse Ox 98% ; Weight 96.16 kg; Height 5 ft. 2 db in. ; 16:36 BP 134 / 85; Pulse 84; Resp 18 S; Pulse Ox 98% on R/A; kc6 17:00 BP 116 / 75; Pulse 84; Resp 17 S; Pulse Ox 99% on R/A; kc6 17:30 BP 113 / 76; Pulse 85; Resp 18 S; Pulse Ox 99% on R/A; kc6 18:00 BP 123 / 80; Pulse 87; Resp 15 S; Pulse Ox 98% on R/A; kc6 18:30 BP 134 / 83; Pulse 91; Resp 18 S; Pulse Ox 99% on R/A; kc6 19:00 BP 130 / 64; Pulse 83; Resp 18; Pulse Ox 96% on R/A; al5 20:00 BP 109 / 51; Pulse 89; Resp 18; Pulse Ox 98% on R/A; al5 21:00 BP 119 / 84; Pulse 88; Resp 17; Pulse Ox 97% on R/A; al5 15:28 Body Mass Index 38.77 (96.16 kg, 157.48 cm) db ED Course: 15:11 Patient arrived in ED. im 15:19 Caterina Gonzalez MD is Attending Physician. sd2 15:25 Inserted saline lock: 20 gauge in right antecubital area, using aseptic technique. kc6 Blood collected. Flushed with 10 mL NS. Patient maintains SpO2 saturation greater than 95% on room air. 15:30 Triage completed. db 15:30 Arm band placed on left wrist. Patient placed in an exam room. db 15:30 Patient has correct armband on for positive identification. Bed in low position. Call kc6 light in reach. Side rails up X 1. Pulse ox on. NIBP on. Door closed. Noise minimized. Lights dimmed. Warm blanket given. Pillow given. 16:38 Sandi Enriquez RN is Primary Nurse. kc6 18:31 Attending Physician role handed off by Caterina Gonzalez MD [facility] [place] 18:31 Juan Saavedra MD is Attending Physician. [facility] 19:00 Report given to Lottie Enriquez RN. kc6 20:45 Bahman Amato MD is Referral Physician. [facility] 21:15 Provided Education on: discharge follow up with [facility]. al5 21:15 No provider procedures requiring assistance completed. IV discontinued, intact, al5 bleeding controlled, No redness/swelling at site. Pressure dressing applied. 23:08 0 faxed chart to [facility] to start transfer. 1908 Dr. Best Sweet accepted pt sp 1908 Lila Oliva admin approval. called [facility] talked to Fatimah. [id number] Transfer cancelled called [facility] and talked to Geraldine. Administered Medications: No medications were administered Medication: 21:40 VIS not applicable for this client. al5 Outcome: 18:32 ER care complete, transfer ordered by . isabella 20:46 Discharge ordered by . isabella 21:15 Discharged to home ambulatory, al5 21:15 Condition: good 21:15 Discharge instructions given to patient, Instructed on discharge instructions, follow up and referral plans. Demonstrated understanding of instructions, follow-up care, 21:45 Patient left the ED. al5 Signatures: Juan Saavedra MD MD cha Pinkerton, Shawna sp Dunlop, Stephanie, MD MD sd2 Sandi Enriquez, RN RN kc6 Nubia Billingsley RN RN db Una Deluca Amanda RN RN al5 Corrections: (The following items were deleted from the chart) 15:32 15:28 Chief complaint: Patient states: HAVING A MENTAL CRISIS TODAY. CAME IN TEARFUL. db STATES LOST JOB AND IS TRYING TO WORK. STATES HAS DEPRESSION db 15:33 15:28 BP 176 / 119; Pulse 98bpm; Resp 18bpm; Pulse Ox 98%; Temp 98F; db db
[2024-08-10 22:27] LABS: Barbiturates NEGATIVE (NEGATIVE); Benzodiazepines NEGATIVE (NEGATIVE); Cocaine NEGATIVE (NEGATIVE); METHAMPHETAM NEGATIVE (NEGATIVE); Methadone NEGATIVE (NEGATIVE); Opiates NEGATIVE (NEGATIVE); Phencyclidine NEGATIVE (NEGATIVE); THC Cannibis NEGATIVE (NEGATIVE)
[2024-08-11 05:31] VITALS: TEMP 98
[2024-08-11 05:44] VITALS: BP 119/84; O2SAT 97
--- NOTE | 2024-08-11 14:13 | EKG ---
Test Date: 2024-08-10 Test Time: 16:06:19 [employer] Specialist: NANCY MEASUREMENT RESULTS: Intervals: Rate: 87 AR: 154 QRSD: 78 QT: 364 QTc: 438 [place]: P: 45 AR: 154 QRS: 12 T: 28 INTERPRETIVE STATEMENTS: Normal sinus rhythm Normal ECG No previous ECG available for comparison Electronically Signed On 08-11-24 14:11:13 CDT by Navjot Bartlett
== END 2024-08-10 21:45 | disposition home or self-care (01) ==
LOC: ER 15:08
DX: F43.23 Adjustment disorder with mixed anxiety and depressed mood (principal); E87.6 Hypokalemia
CPT/HCPCS: 36415; 80053; 80143; 80179; 80307; 81001; 82077; 85025; 93005; 99285